=== PATIENT | male | born 1980 | race Caucasian/White ===

== ENCOUNTER 2017-03-26 22:19 | Emergency (ER) | payer MEDICAID ==
[~2017-03-26] VITALS: Ht 180.3 cm; Wt 80.6 kg
[2017-03-26] MEDS ORDERED: SODIUM CHLORIDE FLUSH 10ML SYR IVF ONE (23:00)
[2017-03-26] MEDS ORDERED: SODIUM CHLORIDE 0.9% 1,000ML IVBOLUS ONE (23:00)
[2017-03-26 23:29] LABS: ASPARTATE AMINO TRANSFERASE 41 U/L (15-37); BLOOD UREA NITROGEN 10 mg/dL (7-18)
[2017-03-27] VITALS: BP 123/73
== END 2017-03-27 02:54 | disposition left against medical advice (07) ==
LOC: ED 22:48
DX: F10.220 Alcohol dependence with intoxication, uncomplicated (principal); F17.210 Nicotine dependence, cigarettes, uncomplicated; I10 Essential (primary) hypertension; G40.909 Epilepsy, unspecified, not intractable, without status epilepticus
CPT/HCPCS: 36415; 80053; 80307; 85025; 93005; 96360; 99285; J7030

== ENCOUNTER 2017-04-05 14:14 | Emergency (ER) | payer MEDICAID ==
[~2017-04-05] VITALS: Ht 182.9 cm; Wt 79.8 kg
[2017-04-05] MEDS ORDERED: ONDANSETRON 2MG/ML, 2ML IVPush ONE (15:00)
[2017-04-05] MEDS ORDERED: ASPIRIN 325 MG TABLET PO ONE (15:00)
[2017-04-05] MEDS ORDERED: THIAMINE 100MG TABLET PO ONE (15:00)
[2017-04-05] MEDS ORDERED: SODIUM CHLORIDE 0.9% 1,000ML IVBOLUS ONE (15:00)
[2017-04-05] MEDS ORDERED: LORazepam 2 MG/ML, 1ML IVPush ONE (15:00)
[2017-04-05 15:12] LABS: IS PT STATUS REG ER OR PRE ER? YES
[2017-04-05] MEDS ORDERED: ONDANSETRON 2MG/ML, 2ML ONE (15:14)
[2017-04-05] MEDS ORDERED: ASPIRIN 325 MG TABLET EC ONE (15:14)
[2017-04-05 15:15] LABS: BLOOD UREA NITROGEN 8 mg/dL (7-18)
[2017-04-05] MEDS ORDERED: THIAMINE 100MG TABLET ONE (15:15)
[2017-04-05] MEDS ORDERED: LORazepam 2 MG/ML, 1ML ONE (15:16)
[2017-04-05 15:18] LABS: ASPARTATE AMINO TRANSFERASE 96 U/L (15-37)
[2017-04-05] MEDS ORDERED: ASPIRIN 325 MG TABLET ONE (15:29)
[2017-04-05 19:11] VITALS: BP 113/60
== END 2017-04-05 19:58 | disposition home or self-care (01) ==
LOC: ED 16:21
DX: R07.89 Other chest pain (principal); R10.13 Epigastric pain; I10 Essential (primary) hypertension; F10.20 Alcohol dependence, uncomplicated; F19.10 Other psychoactive substance abuse, uncomplicated
CPT/HCPCS: 36415; 71010; 80053; 83690; 84484; 85025; 93005; 96361; 96374; 96375; 99285; J2060; J2405; J7030

== ENCOUNTER 2017-04-12 12:35 | Emergency (ER) | payer MEDICAID ==
[~2017-04-12] VITALS: Ht 180.3 cm; Wt 75.0 kg
[2017-04-12] MEDS ORDERED: THIAMINE 100MG TABLET ONE (13:06)
[2017-04-12] MEDS ORDERED: THIAMINE 100MG TABLET PO ONE (13:30)
[2017-04-12 16:17] VITALS: BP 125/78
== END 2017-04-12 16:19 | disposition home or self-care (01) ==
LOC: ED 16:13
DX: G40.909 Epilepsy, unspecified, not intractable, without status epilepticus (principal); F10.129 Alcohol abuse with intoxication, unspecified; F19.10 Other psychoactive substance abuse, uncomplicated
CPT/HCPCS: 36415; 80047; 99283

== ENCOUNTER 2017-04-17 12:39 | Emergency (ER) | payer MEDICAID ==
[~2017-04-17] VITALS: Ht 177.8 cm; Wt 77.0 kg
[2017-04-17] MEDS ORDERED: LORazepam 1MG TABLET ONE (13:29)
[2017-04-17] MEDS ORDERED: SODIUM CHLORIDE 0.9% 1,000ML IVBOLUS ONE (13:30)
[2017-04-17] MEDS ORDERED: LORazepam 1MG TABLET PO ONE ×2 (13:30→15:00)
[2017-04-17] MEDS ORDERED: SODIUM CHLORIDE FLUSH 10ML SYR IVF ONE (13:30)
[2017-04-17 13:53] LABS: ASPARTATE AMINO TRANSFERASE 152 U/L (15-37); BLOOD UREA NITROGEN 12 mg/dL (7-18)
[2017-04-17] MEDS ORDERED: POTASSIUM CHLORIDE 20 MEQ TAB.ER.PRT PO ONE (15:00)
[2017-04-17 16:52] VITALS: BP 129/82
== END 2017-04-17 16:54 | disposition home or self-care (01) ==
LOC: ED 13:59 → UNDOADMIN 14:06 → EDIP 14:06 → ED 16:54
DX: R00.0 Tachycardia, unspecified (principal); I10 Essential (primary) hypertension; F10.239 Alcohol dependence with withdrawal, unspecified; E87.6 Hypokalemia
CPT/HCPCS: 36415; 80053; 80307; 83605; 83690; 85025; 96360; 96361; 99285; J7030

== ENCOUNTER 2017-04-26 15:17 | Emergency (ER) | payer MEDICAID ==
[~2017-04-26] VITALS: Ht 180.3 cm; Wt 82.0 kg
[2017-04-26] MEDS ORDERED: THIAMINE 100MG TABLET PO ONE (15:30)
[2017-04-26 18:22] VITALS: BP 137/73
[2017-04-26] MEDS ORDERED: THIAMINE 100MG TABLET ONE (18:43)
== END 2017-04-26 19:08 | disposition home or self-care (01) ==
LOC: ED 15:38
DX: F10.220 Alcohol dependence with intoxication, uncomplicated (principal); F10.10 Alcohol abuse, uncomplicated; I10 Essential (primary) hypertension; G40.909 Epilepsy, unspecified, not intractable, without status epilepticus
CPT/HCPCS: 36415; 80047; 99283

== ENCOUNTER 2017-05-04 11:32 | Emergency (ER) | payer MEDICAID ==
[~2017-05-04] VITALS: Ht 180.3 cm; Wt 75.8 kg
[2017-05-04 12:19] VITALS: BP 130/82
== END 2017-05-04 13:09 | disposition home or self-care (01) ==
LOC: ED 13:03
DX: F10.120 Alcohol abuse with intoxication, uncomplicated (principal)
CPT/HCPCS: 99283

== ENCOUNTER 2017-06-30 10:23 | Emergency (ER) | payer MEDICAID ==
[~2017-06-30] VITALS: Ht 180.3 cm; Wt 79.7 kg
[2017-06-30] MEDS ORDERED: LORazepam 2 MG/ML, 1ML ONE (11:21)
[2017-06-30] MEDS ORDERED: MAGNESIUM SULFATE 1 GM, THIAMINE 100 MG, FOLIC ACID 1 MG, MVI ADULT 10 ML in SODIUM CHL... IV ONE (11:30)
[2017-06-30] MEDS ORDERED: LORazepam 2 MG/ML, 1ML IVPush PRN (11:30)
[2017-06-30] MEDS ORDERED: ONDANSETRON 2MG/ML, 2ML IVPush ONE (11:30)
[2017-06-30 11:50] LABS: HEMATOCRIT 40.2 % (39.2-51.8); HEMOGLOBIN 13.4 g/dL (13.7-18.0); WHITE BLOOD COUNT 4.3 x10^3/uL (3.4-10)
[2017-06-30 11:52] LABS: IS PT STATUS REG ER OR PRE ER? YES
[2017-06-30 12:06] LABS: ASPARTATE AMINO TRANSFERASE 81 U/L (15-37); BLOOD UREA NITROGEN 16 mg/dL (7-18)
[2017-06-30 12:27] VITALS: BP 134/72
== END 2017-06-30 12:48 | disposition home or self-care (01) ==
LOC: ED 11:00
DX: F10.239 Alcohol dependence with withdrawal, unspecified (principal); R56.9 Unspecified convulsions; F17.200 Nicotine dependence, unspecified, uncomplicated
CPT/HCPCS: 36415; 71010; 80053; 83690; 83735; 84484; 85025; 85610; 85730; 93005; 96374; 96375; 99285; J2060; J2405

== ENCOUNTER 2017-09-11 23:23 | Emergency (ER) | payer MEDICAID ==
[~2017-09-11] VITALS: Ht 180.3 cm; Wt 88.5 kg
[2017-09-12] MEDS ORDERED: ONDANSETRON ODT 4 MG ONE (00:27)
[2017-09-12] MEDS ORDERED: ONDANSETRON ODT 4 MG PO ONE (00:30)
[2017-09-12 00:46] LABS: HEMOGLOBIN 14.3 g/dL (13.7-18.0); WHITE BLOOD COUNT 8.3 x10^3/uL (3.4-10)
[2017-09-12 00:52] LABS: BLOOD UREA NITROGEN 10 mg/dL (7-18)
[2017-09-12 00:54] LABS: ASPARTATE AMINO TRANSFERASE 46 U/L (15-37)
[2017-09-12 03:19] VITALS: BP 127/81
== END 2017-09-12 03:23 | disposition home or self-care (01) ==
LOC: ED 09-12 00:13
DX: K29.20 Alcoholic gastritis without bleeding (principal); F10.10 Alcohol abuse, uncomplicated; I10 Essential (primary) hypertension; Z88.5 Allergy status to narcotic agent
CPT/HCPCS: 36415; 80053; 80307; 83690; 85025; 99284; Q0162; G0479

== ENCOUNTER 2017-09-13 04:28 | Emergency (ER) | payer MEDICAID ==
[~2017-09-13] VITALS: Ht 180.3 cm; Wt 90.1 kg
[2017-09-13] MEDS ORDERED: FAMOTIDINE 20 MG TABLET ONE (05:37)
[2017-09-13] MEDS ORDERED: FAMOTIDINE 20 MG TABLET PO ONE (06:00)
[2017-09-13 11:18] VITALS: BP 134/78
== END 2017-09-13 11:21 | disposition home or self-care (01) ==
LOC: ED 05:58
DX: F10.220 Alcohol dependence with intoxication, uncomplicated (principal); K29.20 Alcoholic gastritis without bleeding
CPT/HCPCS: 99283

== ENCOUNTER 2017-09-14 03:21 | Emergency (ER) | payer MEDICAID | END 2017-09-14 03:38 | disposition left against medical advice (07) | LOC: ED 03:32 | DX: Z53.21 Procedure and treatment not carried out due to patient leaving prior to being seen by health care provider (principal) ==

== ENCOUNTER 2017-09-14 23:16 | Emergency (ER) | payer MEDICAID ==
[~2017-09-14] VITALS: Ht 167.6 cm; Wt 91.0 kg
[2017-09-15] MEDS ORDERED: SODIUM CHLORIDE 0.9% 1,000ML IVBOLUS ONE
[2017-09-15 00:06] LABS: HEMATOCRIT 36.3 % (39.2-51.8); HEMOGLOBIN 12.3 g/dL (13.7-18.0); WHITE BLOOD COUNT 7.7 x10^3/uL (3.4-10)
[2017-09-15 00:17] LABS: BLOOD UREA NITROGEN 8 mg/dL (7-18)
[2017-09-15 04:42] VITALS: BP 110/72
== END 2017-09-15 04:46 | disposition home or self-care (01) ==
LOC: ED 23:52
DX: F10.20 Alcohol dependence, uncomplicated (principal); F19.10 Other psychoactive substance abuse, uncomplicated; Z72.9 Problem related to lifestyle, unspecified
CPT/HCPCS: 36415; 80048; 80307; 82040; 85025; 93005; 96360; 99285; J7030; G0479

== ENCOUNTER 2017-09-20 23:17 | Emergency (ER) | payer MEDICAID ==
[~2017-09-20] VITALS: Ht 180.3 cm; Wt 88.8 kg
[2017-09-21 00:05] LABS: HEMOGLOBIN 12.4 g/dL (13.7-18.0); WHITE BLOOD COUNT 5.6 x10^3/uL (3.4-10)
[2017-09-21 00:12] LABS: ASPARTATE AMINO TRANSFERASE 50 U/L (15-37); BLOOD UREA NITROGEN 10 mg/dL (7-18)
[2017-09-21 03:32] VITALS: BP 121/74
== END 2017-09-21 03:34 | disposition home or self-care (01) ==
LOC: ED 23:36
DX: F10.220 Alcohol dependence with intoxication, uncomplicated (principal); I10 Essential (primary) hypertension; G40.909 Epilepsy, unspecified, not intractable, without status epilepticus
CPT/HCPCS: 36415; 80053; 80307; 85025; 93005; 99285; G0479

== ENCOUNTER 2017-09-22 04:01 | Emergency (ER) | payer MEDICAID ==
[~2017-09-22] VITALS: Ht 180.3 cm; Wt 89.6 kg
[2017-09-22 07:48] VITALS: BP 102/46
== END 2017-09-22 10:46 | disposition home or self-care (01) ==
LOC: ED 05:06
DX: F10.229 Alcohol dependence with intoxication, unspecified (principal); G40.909 Epilepsy, unspecified, not intractable, without status epilepticus; I10 Essential (primary) hypertension
CPT/HCPCS: 99283

== ENCOUNTER 2017-09-23 05:33 | Emergency (ER) | payer MEDICAID ==
[~2017-09-23] VITALS: Ht 180.3 cm; Wt 88.5 kg
[2017-09-23 06:20] LABS: BLOOD UREA NITROGEN 10 mg/dL (7-18)
[2017-09-23 07:25] VITALS: BP 119/75
== END 2017-09-23 08:37 | disposition home or self-care (01) ==
LOC: ED 05:56
DX: F10.120 Alcohol abuse with intoxication, uncomplicated (principal); R56.9 Unspecified convulsions; Y90.9 Presence of alcohol in blood, level not specified
CPT/HCPCS: 36415; 80048; 80307; 82040; 83605; 99284; G0479

== ENCOUNTER 2017-09-24 01:54 | Emergency (ER) | payer MEDICAID ==
[~2017-09-24] VITALS: Ht 180.3 cm; Wt 88.6 kg
[2017-09-24] MEDS ORDERED: CHLORDIAZEPOXIDE 25 MG CAPSULE PO PRN (03:30)
[2017-09-24 04:06] VITALS: BP 148/94
== END 2017-09-24 04:07 | disposition home or self-care (01) ==
LOC: ED 03:07
DX: F10.220 Alcohol dependence with intoxication, uncomplicated (principal); G40.909 Epilepsy, unspecified, not intractable, without status epilepticus; I10 Essential (primary) hypertension
CPT/HCPCS: 99283

== ENCOUNTER 2017-09-28 04:17 | Emergency (ER) | payer MEDICAID ==
[~2017-09-28] VITALS: Ht 180.3 cm; Wt 86.2 kg
[2017-09-28] MEDS ORDERED: SODIUM CHLORIDE 0.9% 1,000 ML IV ONE (05:17)
[2017-09-28] MEDS ORDERED: ONDANSETRON 2MG/ML, 2ML IVPush ONE (05:30)
[2017-09-28] MEDS ORDERED: SODIUM CHLORIDE FLUSH 10ML SYR IVF ONE (05:30)
[2017-09-28] MEDS ORDERED: SODIUM CHLORIDE 0.9% 1,000ML IVBOLUS ONE ×2 (05:30→09:00)
[2017-09-28 05:39] LABS: HEMATOCRIT 39.8 % (39.2-51.8); HEMOGLOBIN 13.3 g/dL (13.7-18.0); WHITE BLOOD COUNT 5.6 x10^3/uL (3.4-10)
[2017-09-28] MEDS ORDERED: ONDANSETRON 2MG/ML, 2ML ONE (05:48)
[2017-09-28 05:51] LABS: BLOOD UREA NITROGEN 15 mg/dL (7-18)
[2017-09-28 05:57] LABS: ASPARTATE AMINO TRANSFERASE 71 U/L (15-37)
[2017-09-28 05:58] LABS: IS PT STATUS REG ER OR PRE ER? YES
[2017-09-28 10:15] VITALS: BP 114/75
== END 2017-09-28 10:17 | disposition home or self-care (01) ==
LOC: ED 05:18
DX: S16.1XXA Strain of muscle, fascia and tendon at neck level, initial encounter (principal); S09.90XA Unspecified injury of head, initial encounter; R56.9 Unspecified convulsions; G40.909 Epilepsy, unspecified, not intractable, without status epilepticus; F10.239 Alcohol dependence with withdrawal, unspecified; I10 Essential (primary) hypertension; R07.89 Other chest pain; X58.XXXA Exposure to other specified factors, initial encounter; Y93.89 Activity, other specified; Y92.89 Other specified places as the place of occurrence of the external cause; Y99.8 Other external cause status
CPT/HCPCS: 36415; 70450; 72125; 74022; 80053; 81001; 83690; 84484; 85025; 85610; 93005; 96361; 96374; 99285; J2405; J7030

== ENCOUNTER 2018-04-09 04:57 | Emergency (ER) | payer MEDICAID ==
[~2018-04-09] VITALS: Ht 182.9 cm; Wt 81.9 kg
[2018-04-09] MEDS ORDERED: LORazepam 1MG TABLET PO ONE (05:30)
[2018-04-09 05:49] LABS: BASOPHILS # (AUTO) 0.03 x10^3/uL (0-0.1); BASOPHILS % (AUTO) 1 % (0-1); EOSINOPHILS # (AUTO) 0.04 x10^3/uL (0-0.4); EOSINOPHILS % (AUTO) 1 % (1-7); LYMPHOCYTES # (AUTO) 3.01 x10^3/uL (1-3.4); LYMPHOCYTES % (AUTO) 53 % (22-44); MD NO; MEAN CORPUSCULAR HEMOGLOBIN 24.7 pg (27.5-34.5); MEAN CORPUSCULAR HGB CONC 32.1 g/dL (33.2-36.2); MEAN PLATELET VOLUME 7.9 fL (7.4-10.4); MONOCYTES # (AUTO) 0.58 x10^3/uL (0.2-0.8); MONOCYTES % (AUTO) 10 % (2-9); NEUTROPHILS # (AUTO) 2.05 x10^3/uL (1.8-6.8); NEUTROPHILS % (AUTO) 36 % (42-75); PLATELET COUNT 231 x10^3/uL (130-400); RED CELL DISTRIBUTION WIDTH 20.1 % (9.4-14.8)
[2018-04-09] MEDS ORDERED: LORazepam 1MG TABLET ONE (05:57)
[2018-04-09 06:01] LABS: ALANINE AMINOTRANSFERASE 50 U/L (12-78); ALBUMIN 4.2 g/dL (3.4-5.0); ANION GAP 10 mmol/L (5-15); CALCIUM 8.5 mg/dL (8.5-10.1); CHLORIDE 105 mmol/L (98-107); CREATININE 0.86 mg/dL (0.7-1.3)
[2018-04-09 06:03] LABS: ALKALINE PHOSPHATASE 99 U/L (45-117); BILIRUBIN,TOTAL 0.6 mg/dL (0.2-1.0); TOTAL PROTEIN 8.2 g/dL (6.4-8.2)
[2018-04-09 06:42] VITALS: BP 145/94
== END 2018-04-09 09:52 | disposition home or self-care (01) ==
LOC: ED 09:43
DX: F10.220 Alcohol dependence with intoxication, uncomplicated (principal); F19.10 Other psychoactive substance abuse, uncomplicated
CPT/HCPCS: 36415; 80053; 83690; 85025; 99284

== ENCOUNTER 2018-04-11 20:01 | Emergency (ER) | payer MEDICAID ==
[~2018-04-11] VITALS: Ht 170.2 cm; Wt 81.1 kg
[2018-04-11 20:08] VITALS: BP_DIAS 98
[2018-04-11] MEDS ORDERED: ONDANSETRON ODT 4 MG PO ONE (20:30)
[2018-04-11] MEDS ORDERED: LORazepam 1MG TABLET PO ONE (20:30)
[2018-04-11] MEDS ORDERED: THIAMINE 100MG TABLET PO ONE (20:30)
[2018-04-11] MEDS ORDERED: LORazepam 1MG TABLET ONE (20:50)
[2018-04-11] MEDS ORDERED: THIAMINE 100MG TABLET ONE (20:50)
[2018-04-11] MEDS ORDERED: ONDANSETRON ODT 4 MG ONE (20:51)
== END 2018-04-11 21:59 | disposition home or self-care (01) ==
LOC: ED 21:04
DX: F10.120 Alcohol abuse with intoxication, uncomplicated (principal); I10 Essential (primary) hypertension; G40.909 Epilepsy, unspecified, not intractable, without status epilepticus
CPT/HCPCS: 93005; 99284; Q0162

== ENCOUNTER 2018-06-13 01:15 | Emergency (ER) | payer MEDICAID ==
[~2018-06-13] VITALS: Ht 180.3 cm; Wt 77.6 kg
[2018-06-13] MEDS ORDERED: ONDANSETRON ODT 4 MG ONE (02:37)
[2018-06-13] MEDS ORDERED: THIAMINE 100MG TABLET ONE (02:37)
[2018-06-13 02:42] VITALS: BP 143/89
[2018-06-13] MEDS ORDERED: THIAMINE 100MG TABLET PO ONE (03:00)
[2018-06-13] MEDS ORDERED: ONDANSETRON ODT 4 MG PO ONE (03:00)
== END 2018-06-13 03:10 | disposition left against medical advice (07) ==
LOC: ED 02:54
DX: F10.239 Alcohol dependence with withdrawal, unspecified (principal); R11.10 Vomiting, unspecified; G40.909 Epilepsy, unspecified, not intractable, without status epilepticus; I10 Essential (primary) hypertension
CPT/HCPCS: 93005; 99283; Q0162

== ENCOUNTER 2018-06-13 15:35 | Inpatient (IN) | payer MEDICAID ==
[~2018-06-13] VITALS: Ht 180.3 cm; Wt 78.2 kg
[2018-06-13] MEDS ORDERED: SODIUM CHLORIDE FLUSH 10ML SYR IVF ONE (16:30)
[2018-06-13] MEDS ORDERED: LORazepam 2 MG/ML, 1ML IVPush ONE (16:30)
[2018-06-13] MEDS ORDERED: THIAMINE 100MG TABLET PO ONE (16:30)
[2018-06-13] MEDS ORDERED: THIAMINE 100MG TABLET ONE (16:33)
[2018-06-13] MEDS ORDERED: LORazepam 2 MG/ML, 1ML ONE (16:34)
[2018-06-13 16:54] LABS: BASOPHILS % (AUTO) 0 % (0-1); EOSINOPHILS % (AUTO) 0 % (1-7); LYMPHOCYTES # (AUTO) 1.31 x10^3/uL (1-3.4); LYMPHOCYTES % (AUTO) 16 % (22-44); MD NO; MEAN CORPUSCULAR HEMOGLOBIN 25.9 pg (27.5-34.5); MEAN CORPUSCULAR HGB CONC 33.2 g/dL (33.2-36.2); MEAN CORPUSCULAR VOLUME 77.8 fL (81-97); MEAN PLATELET VOLUME 8.1 fL (7.4-10.4); MONOCYTES # (AUTO) 0.73 x10^3/uL (0.2-0.8); MONOCYTES % (AUTO) 9 % (2-9); NEUTROPHILS % (AUTO) 75 % (42-75); PLATELET COUNT 200 x10^3/uL (130-400); RED CELL DISTRIBUTION WIDTH 21.6 % (9.4-14.8)
[2018-06-13 16:58] LABS: INTERNATIONAL NORMALIZED RATIO 1.01 (0.93-1.1); PROTHROMBIN TIME 10.4 Seconds (9.6-11.5)
[2018-06-13 17:01] LABS: ALANINE AMINOTRANSFERASE 35 U/L (12-78); ALBUMIN 4.1 g/dL (3.4-5.0); ANION GAP 10 mmol/L (5-15); CALCIUM 8.7 mg/dL (8.5-10.1); CHLORIDE 101 mmol/L (98-107); CREATININE 0.77 mg/dL (0.7-1.3)
[2018-06-13 17:03] LABS: ALKALINE PHOSPHATASE 107 U/L (45-117); TOTAL PROTEIN 8.5 g/dL (6.4-8.2)
[2018-06-13] MEDS ORDERED: POLYETHYLENE GLYCOL 17 GM PACKET PO PRN (19:30)
[2018-06-13] MEDS ORDERED: CHLORDIAZEPOXIDE 25 MG CAPSULE PO PRN (19:30)
[2018-06-13] MEDS ORDERED: BISACODYL 10 MG SUPP PR PRN (19:30)
[2018-06-13] MEDS ORDERED: ACETAMINOPHEN 325 MG TABLET PO PRN (19:30)
[2018-06-13] MEDS ORDERED: ONDANSETRON 2MG/ML, 2ML IVPush PRN (19:30)
[2018-06-13] MEDS ORDERED: KETOROLAC 30 MG/1 ML IV PRN (19:30)
[2018-06-13] MEDS ORDERED: POTASSIUM CHLORIDE 20 MEQ, MAGNESIUM SULFATE 1 GM, THIAMINE 200 MG, FOLIC ACID 1 MG, MV... IV SCH (19:30)
[2018-06-13 20:00] VITALS: BP 145/82
[2018-06-14] MEDS: LORazepam 2 MG/ML, 1ML IVPush PRN ×2 (00:46→07:55)
[2018-06-14 01:05] VITALS: BP 159/84
[2018-06-14 05:02] LABS: BASOPHILS # (AUTO) 0.02 x10^3/uL (0-0.1); BASOPHILS % (AUTO) 0 % (0-1); EOSINOPHILS # (AUTO) 0.06 x10^3/uL (0-0.4); EOSINOPHILS % (AUTO) 1 % (1-7); LYMPHOCYTES # (AUTO) 1.72 x10^3/uL (1-3.4); LYMPHOCYTES % (AUTO) 36 % (22-44); MD NO; MEAN CORPUSCULAR HEMOGLOBIN 25.7 pg (27.5-34.5); MEAN CORPUSCULAR HGB CONC 33.2 g/dL (33.2-36.2); MEAN CORPUSCULAR VOLUME 77.3 fL (81-97); MEAN PLATELET VOLUME 8.5 fL (7.4-10.4); MONOCYTES # (AUTO) 0.57 x10^3/uL (0.2-0.8); MONOCYTES % (AUTO) 12 % (2-9); NEUTROPHILS # (AUTO) 2.37 x10^3/uL (1.8-6.8); NEUTROPHILS % (AUTO) 50 % (42-75); PLATELET COUNT 177 x10^3/uL (130-400); RED BLOOD COUNT 4.72 x10^6/uL (4.38-5.82); RED CELL DISTRIBUTION WIDTH 21.1 % (9.4-14.8)
[2018-06-14 05:05] LABS: ALBUMIN 3.6 g/dL (3.4-5.0); ANION GAP 9 mmol/L (5-15); CALCIUM 8.7 mg/dL (8.5-10.1); CHLORIDE 103 mmol/L (98-107)
[2018-06-14 05:11] LABS: ALANINE AMINOTRANSFERASE 33 U/L (12-78); ALKALINE PHOSPHATASE 103 U/L (45-117); TOTAL PROTEIN 7.6 g/dL (6.4-8.2)
[2018-06-14 07:27] VITALS: BP 138/91
[2018-06-14] MEDS ORDERED: SENNA/DOCUSATE TABLET PO SCH (09:00)
[2018-06-14] MEDS ORDERED: PROCHLORPERAZINE 5 MG/ML, 2ML IVPush ONE (10:30)
[2018-06-14] MEDS ORDERED: KETOROLAC 30 MG/1 ML IVPush SCH (10:30)
[2018-06-14] MEDS ORDERED: DIPHENHYDRAMINE 50 MG/ML, 1ML IVPush ONE (10:30)
[2018-06-14] MEDS ORDERED: CHLORDIAZEPOXIDE 25 MG CAPSULE PO SCH (11:00)
[2018-06-14] MEDS ORDERED: FERROUS SULFATE 325 MG TABLET PO SCH (21:00)
== END 2018-06-14 11:50 | disposition left against medical advice (07) | DRG 101 ==
LOC: ED 17:58 → EDIP 18:36 → 4EST 20:16
PROVIDERS: ADMIT Internal Medicine; ATTEND Internal Medicine
DX: G40.909 Epilepsy, unspecified, not intractable, without status epilepticus (principal); E87.1 Hypo-osmolality and hyponatremia; F10.239 Alcohol dependence with withdrawal, unspecified; I10 Essential (primary) hypertension; F41.1 Generalized anxiety disorder; F10.229 Alcohol dependence with intoxication, unspecified; D50.9 Iron deficiency anemia, unspecified; K74.60 Unspecified cirrhosis of liver; F17.210 Nicotine dependence, cigarettes, uncomplicated; G43.909 Migraine, unspecified, not intractable, without status migrainosus; Z53.21 Procedure and treatment not carried out due to patient leaving prior to being seen by health care provider; Z56.0 Unemployment, unspecified; Z80.8 Family history of malignant neoplasm of other organs or systems; Z88.5 Allergy status to narcotic agent
CPT/HCPCS: 36415; 80053; 80307; 82728; 83540; 83550; 83690; 85025; 85610; 93005; 96374; J1885; J3411; J3475; J3480; J0780; J1200; J2060; J7030

== ENCOUNTER 2018-06-17 23:11 | Emergency (ER) | payer MEDICAID ==
[~2018-06-17] VITALS: Ht 182.9 cm; Wt 78.8 kg
[2018-06-17 23:13] VITALS: BP 160/96
[2018-06-17] MEDS ORDERED: LORazepam 1MG TABLET ONE (23:41)
[2018-06-17] MEDS ORDERED: ONDANSETRON ODT 4 MG ONE (23:41)
[2018-06-17] MEDS ORDERED: MAALOX/HYOSCYAMINE/LIDOCAINE 45 ML BTL ONE (23:42)
[2018-06-18] MEDS ORDERED: LORazepam 1MG TABLET PO ONE
[2018-06-18] MEDS ORDERED: ONDANSETRON ODT 4 MG PO ONE
[2018-06-18] MEDS ORDERED: MAALOX/HYOSCYAMINE/LIDOCAINE 45 ML BTL PO ONE
== END 2018-06-17 23:57 | disposition left against medical advice (07) ==
LOC: ED 23:24
DX: F10.220 Alcohol dependence with intoxication, uncomplicated (principal); I10 Essential (primary) hypertension; G40.909 Epilepsy, unspecified, not intractable, without status epilepticus; Z88.1 Allergy status to other antibiotic agents
CPT/HCPCS: 93005; 99285; Q0162; 80053; 83690; 85025

== ENCOUNTER 2018-06-23 17:57 | Emergency (ER) | payer MEDICAID | END 2018-06-23 18:30 | disposition left against medical advice (07) | LOC: ED 18:24 | DX: R07.9 Chest pain, unspecified (principal); Z53.21 Procedure and treatment not carried out due to patient leaving prior to being seen by health care provider ==

== ENCOUNTER 2018-11-17 21:02 | Emergency (ER) | payer SELFPAY ==
[~2018-11-17] VITALS: Ht 182.9 cm; Wt 82.2 kg
[2018-11-17 21:12] VITALS: BP 145/95
--- NOTE | 2018-11-17 22:15 | NUR ---
PT IN [facility] DEMANDING TO LEAVE. PT INFORMED AWAITING DC PAPERWORK. POC DISCUSSED. PT STATES "I CAN'T WAIT I'M LEAVING". PT REFUSED TO WAIT FOR DC PAPERWORK. PT THEN LEFT
== END 2018-11-17 22:44 | disposition left against medical advice (07) ==
LOC: ED 22:38
DX: F10.220 Alcohol dependence with intoxication, uncomplicated (principal); Z72.9 Problem related to lifestyle, unspecified; G40.909 Epilepsy, unspecified, not intractable, without status epilepticus
CPT/HCPCS: 99281

== ENCOUNTER 2018-11-20 21:49 | Emergency (ER) | payer SELFPAY ==
[~2018-11-20] VITALS: Ht 182.9 cm; Wt 68.0 kg
[2018-11-20 21:51] VITALS: BP 130/81
--- NOTE | 2018-11-20 22:05 | NUR ---
BIB [facility] PT FOUND BY MIRANDA T 4TH AND OSMAN, REPORTED PT WAS SITTING ON GROUND FOR 45 MINS, PT HAS SLURRED SPEECH, ANSWERS YES AND NO QUESTIONS ONLY, PT STATED YES TO H/X OF STROKE, PT NON AMBULATORY, FSBS-126, B/P-153/82, PULSE-84, 96% ON R/A, + ETOH SMELL. MONITORS APPLIED, SIDERAILS UP X2, CALL LIGHT WITHIN REACH.
--- NOTE | 2018-11-20 22:23 | NUR ---
URINE SAMPLE TAKEN TO LAB
[2018-11-20 22:28] LABS: BASOPHILS # (AUTO) 0.01 x10^3/uL (0-0.1); BASOPHILS % (AUTO) 0 % (0-1); EOSINOPHILS % (AUTO) 0 % (1-7); LYMPHOCYTES # (AUTO) 2.58 x10^3/uL (1-3.4); LYMPHOCYTES % (AUTO) 40 % (22-44); MD NO; MEAN CORPUSCULAR HEMOGLOBIN 26.4 pg (27.5-34.5); MEAN CORPUSCULAR HGB CONC 32.8 g/dL (33.2-36.2); MEAN CORPUSCULAR VOLUME 80.4 fL (81-97); MEAN PLATELET VOLUME 6.9 fL (7.4-10.4); MONOCYTES # (AUTO) 0.46 x10^3/uL (0.2-0.8); MONOCYTES % (AUTO) 7 % (2-9); NEUTROPHILS # (AUTO) 3.46 x10^3/uL (1.8-6.8); NEUTROPHILS % (AUTO) 53 % (42-75); PLATELET COUNT 392 x10^3/uL (130-400); RED BLOOD COUNT 5.15 x10^6/uL (4.38-5.82)
[2018-11-20 22:38] LABS: ALANINE AMINOTRANSFERASE 51 U/L (12-78); ALBUMIN 4.4 g/dL (3.4-5.0); ANION GAP 10 mmol/L (5-15); CALCIUM 8.7 mg/dL (8.5-10.1); CHLORIDE 107 mmol/L (98-107); CREATININE 0.76 mg/dL (0.7-1.3); SALICYLATE LEVEL 1.7 mg/dL (2.8-20.0)
[2018-11-20 22:41] LABS: ALKALINE PHOSPHATASE 101 U/L (45-117); BILIRUBIN,TOTAL 0.7 mg/dL (0.2-1.0); TOTAL PROTEIN 8.8 g/dL (6.4-8.2)
[2018-11-20 22:49] LABS: AMPHETAMINE SCREEN, URINE Negative (Negative); BARBITURATE SCREEN, URINE Negative (Negative); BENZODIAZEPINE SCREEN, URINE Negative (Negative); CANNABINOID SCREEN, URINE Negative (Negative); COCAINE SCREEN, URINE Negative (Negative); METHADONE SCREEN, URINE Negative (Negative); OPIATE SCREEN, URINE Negative (Negative)
[2018-11-20 22:52] LABS: ACETAMINOPHEN < 2 mcg/mL (10-30)
--- NOTE | 2018-11-20 22:53 | NUR ---
LATE ENTRY 2219- PT UP IN HALLWAY, PT PULLED IV SITE OUT, 2X2 DRSG APPLIED, HOMESTATIS ACHIEVED. PT REFUSING TO STAY IN ROOM, REQUESTIONG TO CALL HIS , PT ON TELEPHONE " STATED HIS TOLD HIM TO WAIT OUTSIDE", WHEN I ATTEMPTED TO TALK WITH HIS ON TELEPHONE NO ONE WAS ON THE LINE. PT ASKED FOR TAXI BUT HE PROVIDED THIS RN WITH 3 DIFFERENT ADDRESSES TO WHERE HE LIVES. PT ASSISTED BACK TO HIS ROOM, PROVIDED PT WITH SNACK, SITTER AT DOORWAY
== END 2018-11-20 23:20 | disposition home or self-care (01) ==
LOC: EDBD → MERGE 21:49 → ED 22:41
DX: R41.82 Altered mental status, unspecified (principal); R41.0 Disorientation, unspecified; F10.120 Alcohol abuse with intoxication, uncomplicated; I10 Essential (primary) hypertension; E11.9 Type 2 diabetes mellitus without complications
CPT/HCPCS: 36415; 80053; 80307; 80329; 85025; 99284; G0480

== ENCOUNTER 2018-12-04 19:46 | Emergency (ER) | payer MEDICAID ==
[~2018-12-04] VITALS: Ht 182.9 cm; Wt 77.5 kg
--- NOTE | 2018-12-04 19:59 | NUR ---
PT HERE FOR WITNESSED SEIZURE ACTIVIT YBY . PT REPORTS HE HAS SEIZURE HX. PT HAS ETOH ABUSE PROBLEMS AND REPORTS DRINKING HEAVILY 2 HOURS AGO. PT IS UNSTEADY ON FEET AND IMPULSIVE. PT PLACED IN BED WITH SIEZURE PRECAUTIONS IN PLACE. AWIAITNG FURTHER ORDERS. CALL LIGHT IN REACH.
--- NOTE | 2018-12-04 20:08 | NUR ---
PT PALCED IN YELLOW GOWN FOR SAFETY. FALL EDUCATION COMPLETED. PT VERBALIZED UDNERSTANDING TO CALL WHEN WANT TO GET OUT OF BED. PT UNDERSTANDS HE NEEDS SOMEONE AT ALL TIMES TO AMBULATE.
--- NOTE | 2018-12-04 20:45 | NUR ---
ERP TO BEDSIDE.
[2018-12-04 21:19] LABS: ANION GAP 11 mmol/L (5-15); CALCIUM 8.3 mg/dL (8.5-10.1); CHLORIDE 100 mmol/L (98-107); CREATININE 0.78 mg/dL (0.7-1.3)
[2018-12-04 21:22] LABS: TROPONIN I < 0.015 ng/mL (0.000-0.045)
[2018-12-04 21:35] LABS: MEAN CORPUSCULAR HEMOGLOBIN 25.5 pg (27.5-34.5); MEAN CORPUSCULAR HGB CONC 32.2 g/dL (33.2-36.2); MEAN CORPUSCULAR VOLUME 79.1 fL (81-97); MEAN PLATELET VOLUME 8.2 fL (7.4-10.4); RED BLOOD COUNT 4.91 x10^6/uL (4.38-5.82); RED CELL DISTRIBUTION WIDTH 22.1 % (9.4-14.8)
[2018-12-04 21:37] LABS: MD YES
[2018-12-04 21:44] LABS: PLATELET COUNT 43 x10^3/uL (130-400)
--- NOTE | 2018-12-04 21:44 | NUR ---
LAB CALLED TO REPORT A CRITICAL VALUE- PT PLATELETS 43k
[2018-12-04 21:45] LABS: ANISOCYTOSIS 1+; LYMPH#(MANUAL) 1.23 x10^3/uL (1-3.4); LYMPHS% (MANUAL) 44 % (22-44); MONOS#(MANUAL) 0.22 x10^3/uL (0.3-2.7); MONOS% (MANUAL) 8 % (2-9); SEG#(MANUAL) 1.34 x10^3/uL (1.8-6.8); SEGS% (MANUAL) 48 % (42-75)
[2018-12-04 21:46] LABS: <PLATELET ESTIMATE> DECREASED; <PLT MORPHOLOGY> NORMAL PLT MORPH
[2018-12-04 21:53] VITALS: BP 154/76
--- NOTE | 2018-12-04 23:40 | NUR ---
CALLED FOR PT TO FACILITATE DC HOME AND SEEKING OUTPATIENT HELP WITH DETOX. PTS REPORTS UNDERSTANDING AND PT IS AGREEABLE TO PLAN.
--- NOTE | 2018-12-04 23:56 | NUR ---
Patient/Caregiver given discharge instructions and they have confirmed that they understand the instructions. Patient DC IN WHEELCHAIR TO WIFES CAR.
== END 2018-12-04 23:58 | disposition home or self-care (01) ==
LOC: ED 21:00
DX: F10.229 Alcohol dependence with intoxication, unspecified (principal); I10 Essential (primary) hypertension; D69.6 Thrombocytopenia, unspecified; G40.909 Epilepsy, unspecified, not intractable, without status epilepticus
CPT/HCPCS: 36415; 70450; 71045; 80048; 82040; 84484; 85025; 93005; 99284

== ENCOUNTER 2018-12-08 03:59 | Emergency (ER) | payer MEDICAID ==
--- NOTE | 2018-12-08 04:07 | NUR ---
PT. ARRIVED TO ED VIA [facility] FROM [facility] STATING "THEY TOLD ME I HAD TO COME HERE OR GO TO PRISON". PT. WAS D/C FROM HERE 2 HOURS AGO AND LEFT ED AMBULATORY AND ABLE TO MAINTAIN OWN BODY WEIGHT. PT. WAS ABLE TO PUT ON AND TIE OWN SHOES. REFUSED VS.
== END 2018-12-08 04:10 | disposition left against medical advice (07) ==
LOC: ED 04:04
DX: F10.10 Alcohol abuse, uncomplicated (principal); Z53.21 Procedure and treatment not carried out due to patient leaving prior to being seen by health care provider

== ENCOUNTER 2018-12-15 21:35 | Emergency (ER) | payer MEDICAID ==
--- NOTE | 2018-12-15 21:56 | NUR ---
NOEMYX1
--- NOTE | 2018-12-15 22:06 | NUR ---
NILX2
--- NOTE | 2018-12-15 22:44 | NUR ---
NIL X3
--- NOTE | 2018-12-15 22:48 | NUR ---
CALLED FOR TRIAGE THREE TIMES, CHECKED BATHROOM AND INFRONT OF ED DOORS. PT NOT FOUND.
== END 2018-12-15 22:50 | disposition left against medical advice (07) ==
LOC: ED 22:44
DX: R07.9 Chest pain, unspecified (principal); Z53.21 Procedure and treatment not carried out due to patient leaving prior to being seen by health care provider

== ENCOUNTER 2018-12-15 23:10 | Emergency (ER) | payer MEDICAID ==
[~2018-12-15] VITALS: Ht 182.9 cm; Wt 76.1 kg
[2018-12-15 23:15] VITALS: BP 149/89
[2018-12-15] MEDS ORDERED: ASPIRIN 81 MG TABLET CHEW PO ONE (23:30)
[2018-12-16 00:33] LABS: MEAN CORPUSCULAR HEMOGLOBIN 25.7 pg (27.5-34.5); MEAN CORPUSCULAR HGB CONC 32.2 g/dL (33.2-36.2); MEAN CORPUSCULAR VOLUME 79.8 fL (81-97); MEAN PLATELET VOLUME 7.8 fL (7.4-10.4); PLATELET COUNT 83 x10^3/uL (130-400); RED BLOOD COUNT 5.27 x10^6/uL (4.38-5.82); RED CELL DISTRIBUTION WIDTH 23.8 % (9.4-14.8)
[2018-12-16 00:34] LABS: ALANINE AMINOTRANSFERASE 279 U/L (12-78); ALBUMIN 4.6 g/dL (3.4-5.0); ANION GAP 9 mmol/L (5-15); CALCIUM 8.6 mg/dL (8.5-10.1); CHLORIDE 100 mmol/L (98-107)
[2018-12-16 00:38] LABS: ALKALINE PHOSPHATASE 157 U/L (45-117); BILIRUBIN,TOTAL 1.3 mg/dL (0.2-1.0); TROPONIN I < 0.015 ng/mL (0.000-0.045)
[2018-12-16 00:56] LABS: MD YES
[2018-12-16 01:08] LABS: BASOS#(MANUAL) 0.03 x10^3/uL (0-0.1); BASOS% (MANUAL) 1 % (0-1); EOS#(MANUAL) 0.03 x10^3/uL (0.0-0.4); EOS% (MANUAL) 1 % (1-7); LYMPH#(MANUAL) 1.53 x10^3/uL (1-3.4); LYMPHS% (MANUAL) 45 % (22-44); METAMYELOCYTES# (MANUAL) 0.03 x10^3/uL (0-0); METAMYELOCYTES% (MANUAL) 1 % (0-1); MONOS% (MANUAL) 6 % (2-9); REACTIVE LYMPHS # (MANUAL) 0.03 x10^3/uL (0-0); REACTIVE LYMPHS % (MANUAL) 1 % (0-0); SEG#(MANUAL) 1.53 x10^3/uL (1.8-6.8); SEGS% (MANUAL) 45 % (42-75)
[2018-12-16 01:09] LABS: ANISOCYTOSIS 1+; OVALOCYTES 1+; TARGET CELLS 1+
[2018-12-16 01:11] LABS: <PLATELET ESTIMATE> DECREASED; <PLT MORPHOLOGY> NORMAL PLT MORPH
--- NOTE | 2018-12-16 01:57 | NUR ---
PT NOTIFIED REGISTRATION OF INTENT TO LEAVE. REFUSED TO SIGN AMA FORM
== END 2018-12-16 02:00 | disposition left against medical advice (07) ==
LOC: ED 23:59
DX: R07.9 Chest pain, unspecified (principal)
CPT/HCPCS: 36415; 71046; 80053; 84484; 85025; 93005; 99284

== ENCOUNTER 2018-12-16 05:39 | Inpatient (IN) | payer MEDICAID ==
[~2018-12-16] VITALS: Ht 182.9 cm; Wt 76.6 kg
--- NOTE | 2018-12-16 06:12 | NUR ---
NIL X 1 WHEN CALLED BY PA FOR PIT ORDERS.
--- NOTE | 2018-12-16 06:22 | NUR ---
PT. RESTING ON COUGH IN LOBBY; THIS RN WENT TO GET PT. BACK TO TRIAGE ROOM SO PA CAN SEE PT. FOR PIT. PT. REFUSING TO GET OFF COUGH. GERMAN GARCIA OUT TO LOBBY TO ATTEMPT TO GET PT. BACK TO ROOM FOR PIT ORDERS.
--- NOTE | 2018-12-16 07:19 | NUR ---
battery charger: No answer from lobby at this time
--- NOTE | 2018-12-16 07:24 | NUR ---
lithopone charger: no answer from lobby at this time
--- NOTE | 2018-12-16 07:39 | NUR ---
RESIDENTIAL GAS HEAT TECHNICIAN: PT AMBULATED INDEPENDENTLY TO ED ROOM 04 FROM RANDY IN NAD
--- NOTE | 2018-12-16 07:47 | NUR ---
PT STATED THAT HE WANTS TO DETOX. HE STATED THAT HIS LAST DRINK WAS TODAY. HE STATED THAT HE DRANK 3 BEERS TODAY THEN STATED THAT HE DRINKS 18 GALLONS A DAY. PT SMELLS LIKE ALCOHOL. PT IS ALERT, ORIENTED, WITH NAD. PT IS CONNECTED TO THE MONITOR. CALL LIGHT WITHIN REACH.
--- NOTE | 2018-12-16 08:07 | NUR ---
TASK RN: PT RESTING ON GURNEY. NADN. VICTORIA.
--- NOTE | 2018-12-16 08:37 | NUR ---
PTS OXYGEN SAT DECRESED TO 81% WHILE SLEEPING. PT PLACED ON 3L VIA NC, O2 SAT INCRESED TO 97%.
[2018-12-16 08:48] LABS: ALANINE AMINOTRANSFERASE 266 U/L (12-78); ALBUMIN 4.3 g/dL (3.4-5.0); ANION GAP 12 mmol/L (5-15); CALCIUM 8.2 mg/dL (8.5-10.1); CHLORIDE 101 mmol/L (98-107); CREATININE 0.68 mg/dL (0.7-1.3)
[2018-12-16 08:50] LABS: ALKALINE PHOSPHATASE 148 U/L (45-117); BILIRUBIN,TOTAL 1.1 mg/dL (0.2-1.0); TOTAL PROTEIN 8.5 g/dL (6.4-8.2)
--- NOTE | 2018-12-16 08:58 | NUR ---
PT IS RESTING IN BED WITH EYES CLOSED, RESPIRATIONS EQUAL AND NON LABORED. PT DOES NOT KEEP OXYGEN ON. PT IS CONNECTED TO THE MONITOR BOTH SIDE RAILS UP. CALL LIGHT WITHIN REACH.
[2018-12-16 09:01] LABS: MEAN CORPUSCULAR HEMOGLOBIN 25.9 pg (27.5-34.5); MEAN CORPUSCULAR HGB CONC 32.9 g/dL (33.2-36.2); MEAN CORPUSCULAR VOLUME 78.6 fL (81-97); RED BLOOD COUNT 4.92 x10^6/uL (4.38-5.82); RED CELL DISTRIBUTION WIDTH 23.5 % (9.4-14.8)
--- NOTE | 2018-12-16 09:17 | NUR ---
PTS OXYGEN SAT WENT DOWN TO 88%. PT PLACED BACK ON NS AT 3L, O2 SAT INCREASED TO 97%. INFORMED PT TO LEAVE THE OXYGEN ON.
[2018-12-16 09:21] LABS: MD YES
[2018-12-16 09:24] LABS: PLATELET COUNT 77 x10^3/uL (130-400)
[2018-12-16 09:28] LABS: ANISOCYTOSIS 1+; BASOS#(MANUAL) 0.05 x10^3/uL (0-0.1); BASOS% (MANUAL) 2 % (0-1); EOS#(MANUAL) 0.03 x10^3/uL (0.0-0.4); EOS% (MANUAL) 1 % (1-7); LYMPH#(MANUAL) 1.08 x10^3/uL (1-3.4); LYMPHS% (MANUAL) 43 % (22-44); MICROCYTOSIS 1+; MONOS% (MANUAL) 8 % (2-9); NRBC % (MANUAL) 1 % (0-1); SEG#(MANUAL) 1.15 x10^3/uL (1.8-6.8); SEGS% (MANUAL) 46 % (42-75)
[2018-12-16 09:29] LABS: <PLATELET ESTIMATE> DECREASED; <PLT MORPHOLOGY> NORMAL PLT MORPH; OVALOCYTES 1+; TARGET CELLS 1+
--- NOTE | 2018-12-16 10:33 | NUR ---
PT TOOK HIS OXYGEN OFF AGAIN. OXYGEN PUT BACK ON PT AND REMINDED HIM TO KEEP IT ON. PT IS RESTING IN BED, WITH EYES CLOSED, RESPIRATIONS EQUAL AND NON LABORED. NAD. CALL LIGHT WITHIN REACH.
--- NOTE | 2018-12-16 11:31 | NUR ---
PT IS RESTING IN BED, WITH EYES CLOSED, RESPIRATIONS EQUAL AND NON LABORED. NAD. PT IS CONNECTED TO THE MONITOR. CALL LIGHT WITHIN REACH.
--- NOTE | 2018-12-16 12:56 | NUR ---
task rn: pt up to restroom with steady gait. pa aware. awaiting dispo at this time.
[2018-12-16] MEDS ORDERED: CHLORDIAZEPOXIDE 25 MG CAPSULE PO ONE (13:00)
[2018-12-16] MEDS ORDERED: LORazepam 2 MG/ML, 1ML ONE (13:25)
[2018-12-16] MEDS ORDERED: CHLORDIAZEPOXIDE 25 MG CAPSULE ONE (13:25)
[2018-12-16] MEDS ORDERED: MAGNESIUM SULFATE 1 GM, THIAMINE 100 MG, FOLIC ACID 1 MG, MVI ADULT 10 ML in SODIUM CHL... IV ONE (13:30)
[2018-12-16] MEDS ORDERED: SODIUM CHLORIDE FLUSH 10ML SYR IVF ONE (13:30)
[2018-12-16] MEDS ORDERED: LORazepam 2 MG/ML, 1ML IVPush PRN (13:30)
--- NOTE | 2018-12-16 13:36 | NUR ---
HOSPIRALIST AT BEDSIDE.
[2018-12-16] MEDS ORDERED: POTASSIUM CHLORIDE 20 MEQ, MAGNESIUM SULFATE 2 GM, MVI ADULT 10 ML, FOLIC ACID 1 MG in ... IV SCH (13:37)
[2018-12-16] MEDS ORDERED: MAGNESIUM SULFATE 1 GM, FOLIC ACID 1 MG, MVI ADULT 10 ML in SODIUM CHLORIDE 0.9% 1,000 ML IV ONE (13:46)
[2018-12-16] MEDS ORDERED: THIAMINE 100MG TABLET PO SCH (13:47)
[2018-12-16] MEDS ORDERED: PROMETHAZINE 25 MG/ML, 1ML IM PRN (14:00)
[2018-12-16] MEDS ORDERED: LORazepam 2 MG/ML, 1ML IV PRN ×2 (14:00)
[2018-12-16] MEDS ORDERED: ONDANSETRON 2MG/ML, 2ML IVPush PRN (14:00)
[2018-12-16] MEDS ORDERED: LORazepam 2 MG/ML, 1ML IM ONE (14:00)
[2018-12-16] MEDS ORDERED: IBUPROFEN 600 MG TABLET PO PRN (14:00)
[2018-12-16] MEDS ORDERED: LORazepam 1MG TABLET PO PRN (14:00)
[2018-12-16] MEDS ORDERED: LORazepam 0.5MG TABLET PO PRN (14:00)
[2018-12-16] MEDS ORDERED: LABETALOL 5MG/ML, 20ML IVPush PRN (14:00)
--- NOTE | 2018-12-16 14:23 | NUR ---
REPORT GIVEN TO GOLD LANTIGUA. US AT BEDSIDE.
[2018-12-16 14:29] LABS: INTERNATIONAL NORMALIZED RATIO 1.01 (0.93-1.1); PROTHROMBIN TIME 10.7 Seconds (9.6-11.5)
[2018-12-16 14:34] LABS: TROPONIN I < 0.015 ng/mL (0.000-0.045)
[2018-12-16] MEDS: HEPARIN 5,000 UNITS/ML, 1ML SQ SCH ×2 (15:00→22:12)
[2018-12-16] MEDS: LORazepam 2 MG/ML, 1ML IV PRN (18:40)
[2018-12-16 19:45] VITALS: BP 109/65
[2018-12-16 19:54] LABS: TROPONIN I < 0.015 ng/mL (0.000-0.045)
[2018-12-16] MEDS: LORazepam 1MG TABLET PO PRN (22:11)
[2018-12-17] MEDS: LORazepam 1MG TABLET PO PRN ×3 (00:51→20:10)
[2018-12-17] MEDS: LORazepam 2 MG/ML, 1ML IV PRN ×6 (01:56→17:20)
[2018-12-17 02:15] VITALS: BP 153/79
[2018-12-17 02:55] LABS: AMPHETAMINE SCREEN, URINE Negative (Negative); BARBITURATE SCREEN, URINE Negative (Negative); BENZODIAZEPINE SCREEN, URINE Positive (Negative); CANNABINOID SCREEN, URINE Negative (Negative); COCAINE SCREEN, URINE Negative (Negative); METHADONE SCREEN, URINE Negative (Negative); OPIATE SCREEN, URINE Negative (Negative)
[2018-12-17 05:22] LABS: MEAN CORPUSCULAR HEMOGLOBIN 26.4 pg (27.5-34.5); MEAN CORPUSCULAR HGB CONC 33.1 g/dL (33.2-36.2); MEAN CORPUSCULAR VOLUME 79.6 fL (81-97); RED BLOOD COUNT 4.45 x10^6/uL (4.38-5.82); RED CELL DISTRIBUTION WIDTH 23.5 % (9.4-14.8)
[2018-12-17 05:35] LABS: CHLORIDE 99 mmol/L (98-107)
[2018-12-17] MEDS: HEPARIN 5,000 UNITS/ML, 1ML SQ SCH (05:38)
[2018-12-17 05:48] LABS: ALANINE AMINOTRANSFERASE 254 U/L (12-78); ALBUMIN 3.8 g/dL (3.4-5.0); ALKALINE PHOSPHATASE 145 U/L (45-117); ANION GAP 12 mmol/L (5-15); BILIRUBIN,TOTAL 1.2 mg/dL (0.2-1.0); CALCIUM 8.5 mg/dL (8.5-10.1); CREATININE 0.62 mg/dL (0.7-1.3); TOTAL PROTEIN 7.6 g/dL (6.4-8.2); TROPONIN I < 0.015 ng/mL (0.000-0.045)
[2018-12-17 05:57] LABS: MEAN PLATELET VOLUME 7.5 fL (7.4-10.4)
[2018-12-17 05:58] LABS: MD YES; PLATELET COUNT 46 x10^3/uL (130-400)
[2018-12-17] MEDS ORDERED: ASPIRIN 325 MG TABLET EC PO SCH (06:00)
[2018-12-17 06:02] LABS: <PLATELET ESTIMATE> DECREASED; ANISOCYTOSIS 1+; BAND#(MANUAL) 0.03 x10^3/uL; BANDS%(MANUAL) 1 % (0-7); LYMPHS% (MANUAL) 36 % (22-44); MONOS#(MANUAL) 0.18 x10^3/uL (0.3-2.7); MONOS% (MANUAL) 7 % (2-9); OVALOCYTES 1+; SEGS% (MANUAL) 56 % (42-75)
[2018-12-17 06:03] LABS: <PLT MORPHOLOGY> NORMAL PLT MORPH
[2018-12-17 07:15] VITALS: BP 162/96
[2018-12-17] MEDS ORDERED: CHLORDIAZEPOXIDE 25 MG CAPSULE PO PRN (07:30)
[2018-12-17] MEDS ORDERED: FOLIC ACID 1 MG TABLET PO SCH (09:00)
[2018-12-17] MEDS ORDERED: THIAMINE 100MG TABLET PO SCH (09:00)
[2018-12-17] MEDS ORDERED: MULTIVITAMIN 1 TABLET PO SCH (09:00)
[2018-12-17] MEDS ORDERED: POTASSIUM CHLORIDE 20 MEQ, MAGNESIUM SULFATE 2 GM, MVI ADULT 10 ML, FOLIC ACID 1 MG in ... IV SCH (13:30)
[2018-12-17] MEDS: CHLORDIAZEPOXIDE 25 MG CAPSULE PO SCH ×2 (14:49→21:29)
[2018-12-17 15:01] VITALS: BP 128/81
[2018-12-17 20:25] VITALS: BP 160/96
[2018-12-17 21:35] VITALS: BP 150/100
[2018-12-17] MEDS ORDERED: LABETALOL 5 MG/ML SYRINGE IVPush PRN (21:39)
== END 2018-12-17 23:11 | disposition left against medical advice (07) | DRG 442 ==
LOC: ED 08:45 → EDIP 13:10 → 4WST 14:39
PROVIDERS: ADMIT Internal Medicine; ATTEND Internal Medicine
DX: K70.0 Alcoholic fatty liver (principal); F10.239 Alcohol dependence with withdrawal, unspecified; F10.229 Alcohol dependence with intoxication, unspecified; D50.9 Iron deficiency anemia, unspecified; D69.6 Thrombocytopenia, unspecified; E11.9 Type 2 diabetes mellitus without complications; G40.909 Epilepsy, unspecified, not intractable, without status epilepticus; I10 Essential (primary) hypertension; F41.9 Anxiety disorder, unspecified; R07.89 Other chest pain; Z53.21 Procedure and treatment not carried out due to patient leaving prior to being seen by health care provider; Z87.891 Personal history of nicotine dependence; Z88.6 Allergy status to analgesic agent; Z88.8 Allergy status to other drugs, medicaments and biological substances; Z79.899 Other long term (current) drug therapy
CPT/HCPCS: 36415; 99285; J7042; 71045; 76700; 80053; 80307; 83690; 83735; 84100; 84484; 85025; 85610; 85730; 86704; 86706; 86708; 86803; 87340; 93005; 96374; 96375; G0378; J1644; J2405; J2550; J3475; J3480; J2060; J7030

== ENCOUNTER 2019-01-15 00:40 | Emergency (ER) | payer MEDICAID ==
[~2019-01-15] VITALS: Ht 177.8 cm; Wt 80.0 kg
[2019-01-15 00:42] VITALS: BP 152/99
--- NOTE | 2019-01-15 00:54 | NUR ---
PT DID NOT WANT TO STAY IN ER AT THIS TIME. PT STATED HE AND HIS [id number] ARE GOING TO LEAVE FOR A MINUTE AND THEN COME BACK. PT ABLE TO AMBULATE WITH STEADY GAIT. PT A&OX4. PT NOT SI.
== END 2019-01-15 01:01 | disposition left against medical advice (07) ==
LOC: ED 00:57
DX: R56.9 Unspecified convulsions (principal); F10.129 Alcohol abuse with intoxication, unspecified; Z53.21 Procedure and treatment not carried out due to patient leaving prior to being seen by health care provider
CPT/HCPCS: 93005

== ENCOUNTER 2019-01-23 23:43 | Emergency (ER) | payer MEDICAID ==
[~2019-01-23] VITALS: Ht 182.9 cm; Wt 83.0 kg
[2019-01-24] MEDS ORDERED: THIAMINE 100MG TABLET PO STA (00:10)
[2019-01-24] MEDS ORDERED: ONDANSETRON ODT 4 MG ONE (00:11)
--- NOTE | 2019-01-24 00:13 | NUR ---
pt here for detox. pt given meds for nausea. vss. pt has no other needs at this time. call light in reach
[2019-01-24 00:15] VITALS: BP 155/89
[2019-01-24 00:23] LABS: ALANINE AMINOTRANSFERASE 72 U/L (12-78); ALBUMIN 3.9 g/dL (3.4-5.0); ANION GAP 11 mmol/L (5-15); CALCIUM 8.6 mg/dL (8.5-10.1); CHLORIDE 97 mmol/L (98-107); CREATININE 0.87 mg/dL (0.7-1.3)
[2019-01-24] MEDS ORDERED: THIAMINE 100MG TABLET ONE (00:23)
[2019-01-24] MEDS ORDERED: MAGNESIUM OXIDE 400 MG TABLET ONE (00:23)
--- NOTE | 2019-01-24 00:26 | NUR ---
Meds ordered from pharmacy
[2019-01-24] MEDS ORDERED: ONDANSETRON ODT 4 MG PO ONE (00:30)
[2019-01-24] MEDS ORDERED: MAGNESIUM OXIDE 400 MG TABLET PO SCH (00:30)
[2019-01-24] MEDS ORDERED: MULTIVITAMIN 1 TABLET PO SCH (00:30)
[2019-01-24 00:35] LABS: ALKALINE PHOSPHATASE 111 U/L (45-117); BILIRUBIN,TOTAL 0.6 mg/dL (0.2-1.0); TOTAL PROTEIN 8.3 g/dL (6.4-8.2)
[2019-01-24 00:47] LABS: BASOPHILS # (AUTO) 0.02 x10^3/uL (0-0.1); BASOPHILS % (AUTO) 0 % (0-1); EOSINOPHILS # (AUTO) 0.01 x10^3/uL (0-0.4); EOSINOPHILS % (AUTO) 0 % (1-7); LYMPHOCYTES # (AUTO) 2.09 x10^3/uL (1-3.4); LYMPHOCYTES % (AUTO) 31 % (22-44); MD MORPH REVIEW ONLY; MEAN CORPUSCULAR HEMOGLOBIN 26.1 pg (27.5-34.5); MEAN CORPUSCULAR HGB CONC 32.4 g/dL (33.2-36.2); MEAN CORPUSCULAR VOLUME 80.4 fL (81-97); MEAN PLATELET VOLUME 8.2 fL (7.4-10.4); MONOCYTES # (AUTO) 0.94 x10^3/uL (0.2-0.8); MONOCYTES % (AUTO) 14 % (2-9); NEUTROPHILS # (AUTO) 3.66 x10^3/uL (1.8-6.8); NEUTROPHILS % (AUTO) 55 % (42-75); PLATELET COUNT 103 x10^3/uL (130-400); RED BLOOD COUNT 4.43 x10^6/uL (4.38-5.82); RED CELL DISTRIBUTION WIDTH 21.8 % (9.4-14.8)
[2019-01-24 00:48] LABS: ANISOCYTOSIS 1+; OVALOCYTES 1+
[2019-01-24 00:49] LABS: <PLATELET ESTIMATE> DECREASED; <PLT MORPHOLOGY> NORMAL PLT MORPH; POLYCHROMASIA 1+; TARGET CELLS 1+
--- NOTE | 2019-01-24 01:05 | NUR ---
Patient given discharge instructions and they have confirmed that they understand the instructions. Pt angry that he didnt recieve a rx. Patient ambulatory with steady gait.
== END 2019-01-24 01:07 | disposition home or self-care (01) ==
LOC: ED 23:55
DX: F10.120 Alcohol abuse with intoxication, uncomplicated (principal); F17.210 Nicotine dependence, cigarettes, uncomplicated
CPT/HCPCS: 36415; 80053; 80307; 83690; 85025; 99284; Q0162

== ENCOUNTER 2019-03-07 20:20 | Emergency (ER) | payer MEDICAID ==
[~2019-03-07] VITALS: Ht 182.9 cm; Wt 78.6 kg
--- NOTE | 2019-03-07 20:47 | NUR ---
PT HERE TO DETOX. DRINKS 6 HURRICANES A DAY. HAS HAD 3 TODAY. PT STATES "HE HAS A HISTORY OF SEIZURES WHEN HE DETOXES."
[2019-03-07 21:07] LABS: ALANINE AMINOTRANSFERASE 143 U/L (12-78); ALBUMIN 3.7 g/dL (3.4-5.0); ANION GAP 10 mmol/L (5-15); CALCIUM 8.3 mg/dL (8.5-10.1); CHLORIDE 105 mmol/L (98-107); CREATININE 0.73 mg/dL (0.7-1.3)
[2019-03-07 21:12] LABS: ALKALINE PHOSPHATASE 143 U/L (45-117); BILIRUBIN,TOTAL 0.6 mg/dL (0.2-1.0); TOTAL PROTEIN 7.5 g/dL (6.4-8.2)
[2019-03-07] MEDS ORDERED: PROMETHAZINE 25 MG/ML, 1ML IM ONE (21:30)
[2019-03-07] MEDS ORDERED: THIAMINE 100MG TABLET PO ONE (21:30)
[2019-03-07 21:34] LABS: MEAN CORPUSCULAR HEMOGLOBIN 27.3 pg (27.5-34.5); MEAN CORPUSCULAR HGB CONC 33.1 g/dL (33.2-36.2); MEAN CORPUSCULAR VOLUME 82.6 fL (81-97); RED BLOOD COUNT 4.16 x10^6/uL (4.38-5.82)
[2019-03-07 21:35] LABS: MD YES; MEAN PLATELET VOLUME 7.7 fL (7.4-10.4); PLATELET COUNT 63 x10^3/uL (130-400)
[2019-03-07 21:38] LABS: ANISOCYTOSIS 1+; BAND#(MANUAL) 0.11 x10^3/uL; BANDS%(MANUAL) 3 % (0-7); LYMPH#(MANUAL) 1.29 x10^3/uL (1-3.4); LYMPHS% (MANUAL) 34 % (22-44); MONOS#(MANUAL) 0.38 x10^3/uL (0.3-2.7); MONOS% (MANUAL) 10 % (2-9); OVALOCYTES 1+; SEG#(MANUAL) 2.01 x10^3/uL (1.8-6.8); SEGS% (MANUAL) 53 % (42-75)
[2019-03-07 21:39] LABS: <PLATELET ESTIMATE> DECREASED; <PLT MORPHOLOGY> NORMAL PLT MORPH
[2019-03-07] MEDS ORDERED: THIAMINE 100MG TABLET ONE (21:59)
[2019-03-07] MEDS ORDERED: PROMETHAZINE 25 MG/ML, 1ML ONE (21:59)
--- NOTE | 2019-03-07 22:37 | NUR ---
Patient/Caregiver given discharge instructions and they have confirmed that they understand the instructions. Patient ambulatory with steady gait.
[2019-03-07 22:38] VITALS: BP 118/76
== END 2019-03-07 22:40 | disposition home or self-care (01) ==
LOC: ED 20:48
DX: F10.220 Alcohol dependence with intoxication, uncomplicated (principal); Z72.9 Problem related to lifestyle, unspecified; I10 Essential (primary) hypertension; E11.9 Type 2 diabetes mellitus without complications; G40.909 Epilepsy, unspecified, not intractable, without status epilepticus
CPT/HCPCS: 36415; 80053; 80307; 83735; 85025; 96372; 99283; J2550

== ENCOUNTER 2019-03-15 03:56 | Emergency (ER) | payer MEDICAID ==
--- NOTE | 2019-03-15 03:58 | NUR ---
NOEMYX1
--- NOTE | 2019-03-15 04:14 | NUR ---
PT REPORTS HE IS IN ETOH WD "I HAVE BEEN NURSING MY BEERS. IT IS NOT WORKING. I HAVE SEIZURES."
--- NOTE | 2019-03-15 05:14 | NUR ---
PT SLEEPING IN NAD AT THIS TIME
--- NOTE | 2019-03-15 05:22 | NUR ---
Patient is resting comfortably in bed. Vital Signs within normal limits.
[2019-03-15 06:15] LABS: ALBUMIN 3.7 g/dL (3.4-5.0); ANION GAP 10 mmol/L (5-15); CALCIUM 8.7 mg/dL (8.5-10.1); CHLORIDE 102 mmol/L (98-107)
[2019-03-15 06:18] LABS: ALANINE AMINOTRANSFERASE 137 U/L (12-78); ALKALINE PHOSPHATASE 161 U/L (45-117); BILIRUBIN,TOTAL 0.7 mg/dL (0.2-1.0); TOTAL PROTEIN 8.1 g/dL (6.4-8.2)
--- NOTE | 2019-03-15 06:18 | NUR ---
Patient is resting comfortably in bed. Vital Signs within normal limits.
[2019-03-15 07:10] LABS: MEAN CORPUSCULAR HEMOGLOBIN 27.9 pg (27.5-34.5); MEAN CORPUSCULAR HGB CONC 32.7 g/dL (33.2-36.2); MEAN CORPUSCULAR VOLUME 85.2 fL (81-97); MEAN PLATELET VOLUME 7.6 fL (7.4-10.4); PLATELET COUNT 72 x10^3/uL (130-400); RED BLOOD COUNT 4.45 x10^6/uL (4.38-5.82); RED CELL DISTRIBUTION WIDTH 24.8 % (9.4-14.8)
[2019-03-15 07:11] LABS: MD YES
[2019-03-15 07:13] LABS: BAND#(MANUAL) 0.09 x10^3/uL; BANDS%(MANUAL) 2 % (0-7); BASOS#(MANUAL) 0.14 x10^3/uL (0-0.1); BASOS% (MANUAL) 3 % (0-1); LYMPH#(MANUAL) 0.89 x10^3/uL (1-3.4); LYMPHS% (MANUAL) 19 % (22-44); MONOS#(MANUAL) 0.56 x10^3/uL (0.3-2.7); MONOS% (MANUAL) 12 % (2-9); MYELOCYTES# (MANUAL) 0.05 x10^3/uL (0-0); MYELOCYTES% (MANUAL) 1 % (0-0); SEG#(MANUAL) 2.96 x10^3/uL (1.8-6.8); SEGS% (MANUAL) 63 % (42-75)
[2019-03-15 07:15] LABS: <PLATELET ESTIMATE> DECREASED; <PLT MORPHOLOGY> NORMAL PLT MORPH; ANISOCYTOSIS 1+; POLYCHROMASIA 1+
--- NOTE | 2019-03-15 07:15 | NUR ---
REC BS REPORT PT RESTING AT THIS TIME NADN
[2019-03-15 10:14] VITALS: BP 138/74
== END 2019-03-15 10:16 | disposition home or self-care (01) ==
LOC: ED 04:13
DX: F10.229 Alcohol dependence with intoxication, unspecified (principal); I10 Essential (primary) hypertension; Z59.0 Homelessness; Z72.9 Problem related to lifestyle, unspecified; F17.200 Nicotine dependence, unspecified, uncomplicated
CPT/HCPCS: 36415; 80053; 80307; 83690; 85025; 99283

== ENCOUNTER 2019-03-19 23:21 | Emergency (ER) | payer MEDICAID ==
[~2019-03-19] VITALS: Ht 182.9 cm; Wt 79.7 kg
[2019-03-19 23:25] VITALS: BP 144/87
--- NOTE | 2019-03-19 23:45 | NUR ---
Pt is AA and O times 4, aware of the wait, is sitting in lobby watching television, NAD
--- NOTE | 2019-03-19 23:55 | NUR ---
nilx1 [id number]
--- NOTE | 2019-03-20 00:42 | NUR ---
PT HAS ELOPED
== END 2019-03-20 00:44 | disposition other institution (70) ==
LOC: ED 03-20 00:24
DX: F10.129 Alcohol abuse with intoxication, unspecified (principal); F17.200 Nicotine dependence, unspecified, uncomplicated; I10 Essential (primary) hypertension; E11.9 Type 2 diabetes mellitus without complications; G40.909 Epilepsy, unspecified, not intractable, without status epilepticus
CPT/HCPCS: 99283

== ENCOUNTER 2019-03-26 06:17 | Emergency (ER) | payer MEDICAID ==
[~2019-03-26] VITALS: Ht 182.9 cm; Wt 80.6 kg
[2019-03-26 06:20] VITALS: BP 121/78
--- NOTE | 2019-03-26 06:33 | NUR ---
REPORT FROM LOBBY STAFF THAT PT AMBULATED OUT DOOR WITH STEADY GAIT, HAS NOT RETURNED
== END 2019-03-26 06:35 | disposition left against medical advice (07) ==
LOC: ED 06:33
DX: R51 Headache (principal); R53.1 Weakness; Z53.21 Procedure and treatment not carried out due to patient leaving prior to being seen by health care provider

== ENCOUNTER 2019-04-26 02:14 | Emergency (ER) | payer MEDICAID ==
[~2019-04-26] VITALS: Ht 177.8 cm; Wt 81.8 kg
--- NOTE | 2019-04-26 02:41 | NUR ---
PT AMBULATES TO ROOM FROM LOBBY WITH STEADY GAIT.
--- NOTE | 2019-04-26 04:30 | NUR ---
PT ASLEEP IN [facility] AT THIS TIME;
--- NOTE | 2019-04-26 06:04 | NUR ---
KATHY RN: PT IS A&O X4. PT CAN AMBULATE SAFELY AROUND ROOM AND LITTLE. NO ACUTE DISTRESS. VS STABLE. PT GIVEN A BUS PASS. PT DISCHARGED.
[2019-04-26 06:06] VITALS: BP 131/60
== END 2019-04-26 06:16 | disposition home or self-care (01) ==
LOC: ED 02:54
DX: F10.120 Alcohol abuse with intoxication, uncomplicated (principal); Z72.9 Problem related to lifestyle, unspecified; F17.210 Nicotine dependence, cigarettes, uncomplicated
CPT/HCPCS: 99281

== ENCOUNTER 2019-05-11 04:53 | Emergency (ER) | payer MEDICAID ==
[~2019-05-11] VITALS: Ht 182.9 cm; Wt 78.5 kg
--- NOTE | 2019-05-11 05:06 | NUR ---
PT STATES HE WANTS TO DETOX OFF OF ALCOHOL AND STATES THAT HE HAS SEIZURES WHEN HE STOPS DRINKING. LAST DRINK WAS 0430 ON THIS DAY. PT STATES HE HAD A SEIZURE THIS MORNING BEFORE THE LAST DRINK.
--- NOTE | 2019-05-11 05:11 | NUR ---
ER PA IN TO ASSESS PT
[2019-05-11 05:52] LABS: BASOPHILS # (AUTO) 0.02 x10^3/uL (0-0.1); BASOPHILS % (AUTO) 1 % (0-1); EOSINOPHILS # (AUTO) 0.03 x10^3/uL (0-0.4); EOSINOPHILS % (AUTO) 1 % (1-7); LYMPHOCYTES # (AUTO) 1.29 x10^3/uL (1-3.4); LYMPHOCYTES % (AUTO) 40 % (22-44); MD NO; MEAN CORPUSCULAR HEMOGLOBIN 28.8 pg (27.5-34.5); MEAN CORPUSCULAR HGB CONC 32.5 g/dL (33.2-36.2); MEAN CORPUSCULAR VOLUME 88.5 fL (81-97); MEAN PLATELET VOLUME 7.1 fL (7.4-10.4); MONOCYTES # (AUTO) 0.41 x10^3/uL (0.2-0.8); MONOCYTES % (AUTO) 13 % (2-9); NEUTROPHILS # (AUTO) 1.52 x10^3/uL (1.8-6.8); NEUTROPHILS % (AUTO) 47 % (42-75); PLATELET COUNT 162 x10^3/uL (130-400); RED BLOOD COUNT 4.49 x10^6/uL (4.38-5.82); RED CELL DISTRIBUTION WIDTH 16.5 % (9.4-14.8)
[2019-05-11 06:00] LABS: ALANINE AMINOTRANSFERASE 135 U/L (12-78); ALBUMIN 3.9 g/dL (3.4-5.0); ANION GAP 12 mmol/L (5-15); CALCIUM 8.5 mg/dL (8.5-10.1); CHLORIDE 100 mmol/L (98-107); CREATININE 0.71 mg/dL (0.7-1.3)
[2019-05-11 06:05] LABS: ALKALINE PHOSPHATASE 137 U/L (45-117); BILIRUBIN,TOTAL 0.9 mg/dL (0.2-1.0); TOTAL PROTEIN 8.6 g/dL (6.4-8.2)
[2019-05-11 06:08] VITALS: BP 131/88
--- NOTE | 2019-05-11 06:09 | NUR ---
PT RESTING ON [employer]. NO REQUESTS AT THIS TIME.
== END 2019-05-11 07:01 | disposition home or self-care (01) ==
LOC: ED 05:46
DX: F10.220 Alcohol dependence with intoxication, uncomplicated (principal); I10 Essential (primary) hypertension
CPT/HCPCS: 36415; 80053; 80307; 85025; 93005; 99284

== ENCOUNTER 2019-08-23 00:11 | Emergency (ER) | payer MEDICAID ==
[~2019-08-23] VITALS: Ht 182.9 cm; Wt 75.5 kg
[2019-08-23] MEDS ORDERED: ONDANSETRON 2MG/ML, 2ML ONE (00:41)
[2019-08-23] MEDS ORDERED: ONDANSETRON 2MG/ML, 2ML IVPush ONE (01:00)
[2019-08-23 01:02] LABS: MEAN CORPUSCULAR HEMOGLOBIN 27.1 pg (27.5-34.5); MEAN CORPUSCULAR HGB CONC 32.8 g/dL (33.2-36.2); MEAN CORPUSCULAR VOLUME 82.7 fL (81-97); RED BLOOD COUNT 4.94 x10^6/uL (4.38-5.82); RED CELL DISTRIBUTION WIDTH 24.3 % (9.4-14.8)
[2019-08-23 01:11] LABS: ANISOCYTOSIS 1+; BASOPHILS % (AUTO) 0 % (0-1); EOSINOPHILS % (AUTO) 0 % (1-7); LYMPHOCYTES # (AUTO) 1.28 x10^3/uL (1-3.4); LYMPHOCYTES % (AUTO) 43 % (22-44); MD MORPH REVIEW ONLY; MEAN PLATELET VOLUME 7.5 fL (7.4-10.4); MONOCYTES # (AUTO) 0.39 x10^3/uL (0.2-0.8); MONOCYTES % (AUTO) 13 % (2-9); NEUTROPHILS # (AUTO) 1.29 x10^3/uL (1.8-6.8); NEUTROPHILS % (AUTO) 44 % (42-75); OVALOCYTES 1+; PLATELET COUNT 97 x10^3/uL (130-400)
[2019-08-23 01:12] LABS: <PLATELET ESTIMATE> DECREASED; CHLORIDE 100 mmol/L (98-107); LARGE PLATELETS 1+; MICROCYTOSIS 1+
[2019-08-23 01:26] LABS: ALANINE AMINOTRANSFERASE 91 U/L (12-78); ALBUMIN 3.9 g/dL (3.4-5.0); ALKALINE PHOSPHATASE 139 U/L (45-117); ANION GAP 10 mmol/L (5-15); BILIRUBIN,TOTAL 0.6 mg/dL (0.2-1.0); CALCIUM 8.7 mg/dL (8.5-10.1); CREATININE 0.85 mg/dL (0.7-1.3); TOTAL PROTEIN 8.5 g/dL (6.4-8.2)
--- NOTE | 2019-08-23 02:02 | NUR ---
Pt given water for po challenge per md order. Pt able to tolerate po fluids.
[2019-08-23 02:30] VITALS: BP 143/87
== END 2019-08-23 02:45 | disposition home or self-care (01) ==
LOC: ED 00:25
DX: F10.120 Alcohol abuse with intoxication, uncomplicated (principal); R11.2 Nausea with vomiting, unspecified; F17.200 Nicotine dependence, unspecified, uncomplicated; I10 Essential (primary) hypertension; E11.9 Type 2 diabetes mellitus without complications; G40.909 Epilepsy, unspecified, not intractable, without status epilepticus
CPT/HCPCS: 36415; 80053; 80307; 83690; 85025; 96374; 99283; J2405

== ENCOUNTER 2019-10-07 02:01 | Emergency (ER) | payer MEDICAID ==
[~2019-10-07] VITALS: Ht 182.9 cm; Wt 77.0 kg
[2019-10-07 02:03] VITALS: BP 156/96
[2019-10-07] MEDS ORDERED: DIAZEPAM 5 MG TABLET PO ONE (04:00)
[2019-10-07] MEDS ORDERED: DIAZEPAM 5 MG TABLET ONE (04:24)
== END 2019-10-07 05:19 | disposition home or self-care (01) ==
LOC: ED 05:13
DX: F10.220 Alcohol dependence with intoxication, uncomplicated (principal); I10 Essential (primary) hypertension; E11.9 Type 2 diabetes mellitus without complications; G40.909 Epilepsy, unspecified, not intractable, without status epilepticus; Y90.0 Blood alcohol level of less than 20 mg/100 ml
CPT/HCPCS: 99282

== ENCOUNTER 2019-10-12 23:13 | Emergency (ER) | payer MEDICAID ==
[~2019-10-12] VITALS: Ht 182.9 cm; Wt 79.3 kg
[2019-10-12 23:17] VITALS: BP 118/80
--- NOTE | 2019-10-13 00:15 | NUR ---
Patient ambulated with some difficulty to [facility] without assistance. Patient smells of alcohol. Patient threw himself into bed. By the time RN arrove to bedside, patient already had eyes closed. Patient arouses to voice makes eye contact with RN but doesn't verbally respond. Patient now laying face down. Awaiting lab results.
[2019-10-13 00:16] LABS: BASOPHILS # (AUTO) 0.04 x10^3/uL (0-0.1); BASOPHILS % (AUTO) 1 % (0-1); EOSINOPHILS # (AUTO) 0.12 x10^3/uL (0-0.4); EOSINOPHILS % (AUTO) 2 % (1-7); LYMPHOCYTES # (AUTO) 2.45 x10^3/uL (1-3.4); LYMPHOCYTES % (AUTO) 45 % (22-44); MD NO; MEAN CORPUSCULAR HEMOGLOBIN 27.7 pg (27.5-34.5); MEAN CORPUSCULAR HGB CONC 32.4 g/dL (33.2-36.2); MEAN CORPUSCULAR VOLUME 85.4 fL (81-97); MEAN PLATELET VOLUME 8.4 fL (7.4-10.4); MONOCYTES # (AUTO) 0.81 x10^3/uL (0.2-0.8); MONOCYTES % (AUTO) 15 % (2-9); NEUTROPHILS # (AUTO) 2.02 x10^3/uL (1.8-6.8); NEUTROPHILS % (AUTO) 37 % (42-75); PLATELET COUNT 143 x10^3/uL (130-400); RED BLOOD COUNT 4.08 x10^6/uL (4.38-5.82); RED CELL DISTRIBUTION WIDTH 20.7 % (9.4-14.8)
[2019-10-13 00:24] LABS: ALANINE AMINOTRANSFERASE 92 U/L (12-78); ALBUMIN 3.8 g/dL (3.4-5.0); ANION GAP 10 mmol/L (5-15); CALCIUM 8.4 mg/dL (8.5-10.1); CHLORIDE 110 mmol/L (98-107); CREATININE 0.69 mg/dL (0.7-1.3)
[2019-10-13 00:29] LABS: ALKALINE PHOSPHATASE 65 U/L (45-117); BILIRUBIN,TOTAL 0.3 mg/dL (0.2-1.0); TOTAL PROTEIN 7.8 g/dL (6.4-8.2)
--- NOTE | 2019-10-13 00:38 | NUR ---
BREAK RN: PT. RESTING ON GURNEY WITH EVEN, NON-LABORED RESPIRATIONS. CONTINUOUS PULSE OX IN PLACE. ALL SAFETY MEASURES OBSERVED.
--- NOTE | 2019-10-13 01:01 | NUR ---
BREAK RN: PT. HAD AMBULATED INTO ED THROUGH TRIAGE. PT. PROVIDED WITH D/C INSTRUCITONS. PT. ABLE TO FULLY DRESS SELF, TO INCLUDE PUTTING ON AND TYING HIS OWN SHOES. PT. AMBULATORY WITH STEADY GAIT. NO DISTRESS NOTED.
== END 2019-10-13 01:04 | disposition home or self-care (01) ==
LOC: ED 10-13 00:14
DX: F10.120 Alcohol abuse with intoxication, uncomplicated (principal); Z72.9 Problem related to lifestyle, unspecified; E11.9 Type 2 diabetes mellitus without complications
CPT/HCPCS: 36415; 80053; 80307; 85025; 99283

== ENCOUNTER 2020-02-08 16:17 | Emergency (ER) | payer MEDICAID ==
[~2020-02-08] VITALS: Ht 182.9 cm; Wt 78.1 kg
[2020-02-08] MEDS ORDERED: ACETAMINOPHEN 650 MG/20.3 ML UDC ONE (17:26)
[2020-02-08 18:00] LABS: BASOPHILS % (AUTO) 0 % (0-1); EOSINOPHILS # (AUTO) 0.07 x10^3/uL (0-0.4); EOSINOPHILS % (AUTO) 1 % (1-7); LYMPHOCYTES # (AUTO) 2.11 x10^3/uL (1-3.4); LYMPHOCYTES % (AUTO) 16 % (22-44); MD NO; MEAN CORPUSCULAR HGB CONC 32.5 g/dL (33.2-36.2); MEAN PLATELET VOLUME 7.7 fL (7.4-10.4); MONOCYTES # (AUTO) 1.12 x10^3/uL (0.2-0.8); MONOCYTES % (AUTO) 9 % (2-9); NEUTROPHILS % (AUTO) 75 % (42-75); PLATELET COUNT 196 x10^3/uL (130-400); RED BLOOD COUNT 4.93 x10^6/uL (4.38-5.82); RED CELL DISTRIBUTION WIDTH 21.2 % (9.4-14.8)
[2020-02-08 18:03] LABS: ALBUMIN 3.6 g/dL (3.4-5.0); ANION GAP 11 mmol/L (5-15); CALCIUM 9.1 mg/dL (8.5-10.1); CHLORIDE 97 mmol/L (98-107)
[2020-02-08 18:53] VITALS: BP 134/92
--- NOTE | 2020-02-08 18:53 | NUR ---
pt resting in bed, pt stated he has a hx of sz with etoh detox and epilepsy
--- NOTE | 2020-02-08 19:02 | NUR ---
REPORT GIVEN TO EVELIA LANTIGUA
--- NOTE | 2020-02-08 19:05 | NUR ---
Report from Abelardo LANTIGUA.
--- NOTE | 2020-02-08 19:10 | NUR ---
Pt ambulated without assistance on steady gait.
== END 2020-02-08 19:29 | disposition left against medical advice (07) ==
LOC: ED 16:32
DX: F10.220 Alcohol dependence with intoxication, uncomplicated (principal); R00.0 Tachycardia, unspecified; Y90.9 Presence of alcohol in blood, level not specified
CPT/HCPCS: 36415; 80048; 80307; 82040; 85025; 93005; 99284

== ENCOUNTER 2020-12-04 17:41 | Emergency (ER) | payer MEDICAID ==
[~2020-12-04] VITALS: Ht 180.3 cm; Wt 85.4 kg
--- NOTE | 2020-12-04 18:58 | NUR ---
Pt states "I took two percocet and now I feel weird". Pt states that he has anxiety. Recently quit smoking and drinkiing.
[2020-12-04] MEDS ORDERED: LORazepam 1MG TABLET PO ONE (19:30)
[2020-12-04 19:47] LABS: BASOPHILS % (AUTO) 1 % (0-1); EOSINOPHILS % (AUTO) 2 % (1-7); LYMPHOCYTES % (AUTO) 41 % (22-44); MEAN CORPUSCULAR HEMOGLOBIN 28.5 pg (27.5-34.5); MEAN CORPUSCULAR HGB CONC 33.2 g/dL (33.2-36.2); MEAN PLATELET VOLUME 9.5 fL (7.4-10.4); MONOCYTES % (AUTO) 14 % (2-9); NEUTROPHILS % (AUTO) 42 % (42-75); PLATELET COUNT 241 x10^3/uL (130-400); RED BLOOD COUNT 4.54 x10^6/uL (4.38-5.82); RED CELL DISTRIBUTION WIDTH 16.9 % (9.4-14.8)
[2020-12-04] MEDS ORDERED: LORazepam 1MG TABLET ONE (19:50)
[2020-12-04 19:54] LABS: ALANINE AMINOTRANSFERASE 51 U/L (12-78); ALBUMIN 4.1 g/dL (3.4-5.0); ANION GAP 6 mmol/L (5-15); CALCIUM 9.4 mg/dL (8.5-10.1); CHLORIDE 106 mmol/L (98-107); CREATININE 0.82 mg/dL (0.7-1.3)
[2020-12-04 19:56] LABS: ALKALINE PHOSPHATASE 82 U/L (45-117); BILIRUBIN,TOTAL 0.7 mg/dL (0.2-1.0); TOTAL PROTEIN 8.1 g/dL (6.4-8.2)
[2020-12-04 19:59] LABS: MD NO
--- NOTE | 2020-12-04 20:20 | NUR ---
Pt medicated per order. Pt anxious in room, but cooperative. Pt A&O, states feeling itchy. Pt with stable VS, resting in bed, on monitor. Will monitor.
[2020-12-04] MEDS ORDERED: DIPHENHYDRAMINE 25 MG CAPSULE PO ONE (21:30)
[2020-12-04] MEDS ORDERED: FAMOTIDINE 20 MG TABLET PO ONE (21:30)
[2020-12-04] MEDS ORDERED: FAMOTIDINE 20 MG TABLET ONE (21:32)
[2020-12-04] MEDS ORDERED: DIPHENHYDRAMINE 25 MG CAPSULE ONE ×2 (21:32→21:34)
[2020-12-04 21:39] VITALS: BP 120/79
--- NOTE | 2020-12-04 21:39 | NUR ---
Pt medicated per order. Pt states feeling better. Pt dc'd with written and verbal instructions. Pt ambulatory out of Ed without difficutly. Pt walking home accross the street.
== END 2020-12-04 21:41 | disposition home or self-care (01) ==
LOC: ED 19:45
DX: F41.1 Generalized anxiety disorder (principal); T40.2X5A Adverse effect of other opioids, initial encounter; M54.5 Low back pain; R06.02 Shortness of breath; E11.9 Type 2 diabetes mellitus without complications; I10 Essential (primary) hypertension; E87.6 Hypokalemia; R07.89 Other chest pain; G40.909 Epilepsy, unspecified, not intractable, without status epilepticus; Z76.0 Encounter for issue of repeat prescription; Z87.891 Personal history of nicotine dependence; Y92.89 Other specified places as the place of occurrence of the external cause
CPT/HCPCS: 36415; 71045; 80053; 85025; 93005; 99285; Q0163